=== PATIENT | female | born 1955 | race Caucasian/White ===

== ENCOUNTER 2016-12-03 23:48 | Inpatient (IN) | payer OTHER ==
--- NOTE | ~2016-12-03 | US77 ---
[facility] A Service of [facility] RADIOLOGY TEXT RESULTS PATIENT: BRAD WATSON LOCATION: [facility] 306- : 54 UNIT #: [id number] AGE: [address]: Ángela Landers MD SEX: F ORDER DR: [id number] [place] [id number] [facility]. [place], [place] [address] [id number] I MR#: [id number] #: [id number] NAME: BRAD WATSON : 1955 SEX: F STUDY DATE/TIME: 12/05/2016 14:00 [facility] ROOM: [facility] STUDY DESCRIPTION: US Kidney Bilateral Complete Attending Physician: Ángela Landers M.D. Ordering Physician: Ángela Landers M.D. Primary Care Physician: Rosa Monet A.P.R.N. MEDICAL IMAGING REPORT This report is preliminary unless electronic signature is present EXAM Renal ultrasound INDICATION Renal insufficiency. BUN 26, creatinine 1.3, GFR 43. PROCEDURE Perez-scale and Doppler imaging kidneys and bladder. COMPARISON CT 12/04/2016 FINDINGS The right kidney measures 10.5 cm. No hydronephrosis. Unremarkable bladder. Left kidney measures 8.7 cm. No hydronephrosis. There is a 10.0 mm cyst in the left kidney and a 1.2 cm cyst exophytic from the left kidney. IMPRESSION Two small left renal cysts. Otherwise negative renal ultrasound. No hydronephrosis. Dictated by... Tano Noriega M.D. THIS IS AN ELECTRONICALLY VERIFIED REPORT Tano Noriega M.D. at 12/06/2016 1:56 PM SHARIF/silverio TD: 12/05/2016 15:40 JOB #: [id number] MEDICAL IMAGING REPORT [facility] A Service of [facility] RADIOLOGY TEXT RESULTS PATIENT: BRAD WATSON LOCATION: [facility] 306- : 54 UNIT #: [id number] AGE: [address]: Ángela Landers MD SEX: F ORDER DR: Page 1 of 1 COPY
--- NOTE | ~2016-12-03 | DS ---
Unit #: [id number] #: [id number] Patient: BRAD WATSON [id number] [address] [address] [id number] I MR#: [id number] NAME: BRAD WATSON. ROOM: 306 Age: 61 Sex: F Admission Date: 12/04/2016 : 1955 Discharge Date: 12/07/2016 Attending Physician: Ángela Landers M.D. Primary Care Physician: Rosa Monet A.P.R.N. DISCHARGE SUMMARY DISCHARGE DIAGNOSES 1. Large prepyloric gastric ulcer. 2. Abdominal pain secondary to gastric ulcer. 3. Acute gastritis. 4. Urinary tract infection. Cultures negative. 5. Hypoglycemia secondary to poor p.o. intake. 6. Nausea secondary to gastric ulcer. 7. History of chronic obstructive pulmonary disease, stable. 8. Coronary artery disease with non-ST myocardial infarction elevation, with normal ejection fraction. 9. Hypertension, controlled. 10. Hyperlipidemia. 11. Chronic respiratory failure, hypoxic on 2 liters oxygen. 12. Obstructive sleep apnea, noncompliant with CPAP. 13. History of PE. 14. History of diverticular disease. 15. Gastroesophageal reflux disease. 16. Hypothyroidism. 17. Depression. 18. History of ventral hernia. 19. Sigmoid diverticulosis. 20. Cirrhotic morphology of the liver on CAT scan of the abdomen, present on admission. Likely alcohol related. 21. Hyperkalemia on admission. 22. Acute kidney injury, present on admission. 23. Mild protein malnutrition. 24. Sepsis present on admission from urinary tract infection. 25. Hypovolemic shock present on admission. 26. Lumbar compression fracture, L1 and L4 and T12, chronic. Present on admission. CON[facility]ULT[facility]. PROCEDURES PERFORMED The patient had an EGD and colonoscopy which showed 2 cm prepyloric ulcer, gastritis. DIAGNOSTIC DATA LABORATORY: Glucose 74, stool cultures negative, sodium 136, potassium 4.3, creatinine 1.1, albumin 2.8, white blood cell count 8.3, hemoglobin 11.2, platelets 222. Blood cultures negative. Urine cultures negative. Lactic acid 2.5. Unit #: [id number] #: [id number] Patient: BRAD WATSON IMAGING: Ultrasound of the kidneys negative for any hydronephrosis. CAT scan of the abdomen and pelvis shows no acute findings. Ventral hernia present. Sigmoid diverticulosis present. Cirrhotic morphology of the liver present. No hydronephrosis. ALLERGIES Barbiturates, phenobarbital. DISCHARGE MEDICATIONS 1. Albuterol 2 puffs inhalation q.4 h. p.r.n. shortness of breath. 2. Zoloft 150 mg at bedtime. 3. Zofran 4 mg q.6 h. p.r.n. nausea. 4. Zyrtec 10 mg daily. 5. Pravastatin 20 mg daily. 6. Carafate 1 g q.i.d. 7. Aspirin 81 mg daily. 8. Protonix 40 mg p.o. b.i.d. 9. Synthroid 112 mcg p.o. daily. HOSPITAL COURSE This is a 61-year-old admitted because of abdominal pain and nausea. Abdomen pain and nausea: Secondary to prepyloric ulcer. The patient had an EGD and colonoscopy which showed ulcer. The patient received IV Protonix and Carafate. Currently the patient is tolerating a diet okay. Continue with Protonix and Carafate. I gave prescriptions. Hypoglycemia: Secondary to poor p.o. intake. Currently she (1) . I encouraged p.o. diet at home. Sepsis: Secondary to urinary tract infection. Present on admission. Currently resolved. The patient received antibiotics. She does not need antibiotics to take home. She completed her course. Hypovolemic shock: The patient received IV fluids. Currently resolved. Urinary tract infection: Cultures negative. The patient received Rocephin. She completed the antibiotics. Chronic L1, L4 and T12 fractures: I discussed with the patient. Apparently she knows about them. Follow up with primary care physician for followup. Currently she denies having any back pain. The patient will be discharged home to follow up with primary care physician in one week time. Discharge time taken was 31 minutes. Dictated by... Lashanda Khan TD: 12/07/2016 10:20 JOB #: [id number] Unit #: [id number] #: [id number] Patient: BRAD WATSON CC: Rosa Monet A.P.R.N. DISCHARGE SUMMARY Page 1 of 1 X Ángela Landers MD DISCHARGE SUMMARY
--- NOTE | ~2016-12-03 | CR72 ---
[facility] A Service of [facility] RADIOLOGY TEXT RESULTS PATIENT: BRAD WATSON LOCATION: [facility] 306- : 54 UNIT #: [id number] AGE: [address]: Joanne Ramon MD SEX: F ORDER DR: [id number] [facility] [address] [place], [place] [address] [id number] I MR#: [id number] Acc #: [id number] NAME: BRAD WATSON : 1955 SEX: F STUDY DATE/TIME: 12/04/2016 00:45 UNIT: [address] ROOM: [facility] STUDY DESCRIPTION: CR Chest Single View Portable Attending Physician: Joanne Ramon M.D. Ordering Physician: Ed Anderson Willoughby M.D. Primary Care Physician: Rosa Monet A.P.R.N. MEDICAL IMAGING REPORT This report is preliminary unless electronic signature is present EXAM Portable chest 12/04/2016 at 0045 INDICATION Shortness of air with nausea and vomiting for 1 day. History of COPD. FINDINGS AP portable chest is compared with 01/01/2016. Cardiac and mediastinal contours are normal. The lungs are emphysematous but clear. No pneumothorax is seen. There is some atherosclerotic disease in the aorta. IMPRESSION Emphysema. No active disease. Dictated by... Sae Jessica Jr., M.D. THIS IS AN ELECTRONICALLY VERIFIED REPORT Sae Jessica Jr., M.D. at 12/04/2016 5:18 PM GORGE/alonso TD: 12/04/2016 12:33 JOB #: [id number] MEDICAL IMAGING REPORT Page 1 of 1 COPY
--- NOTE | ~2016-12-03 | CO ---
Unit #: [id number] #: [id number] Patient: BRAD WATSON [id number] [address] [place], [place] [address] [id number] I MR#: [id number] NAME: BRAD WATSON. ROOM: 38678 Age: 61 Sex: F Admission Date: 12/04/2016 : 1955 Attending Physician: Joanne Ramon M.D. Primary Care Physician: Rosa Monet A.P.R.N. Consultation Date: 12/04/2016 CONSULTATION REPORT BRIEF HISTORY The patient is a 61-year-old lady with multiple medical problems, who presents with nausea, vomiting, diarrhea, and chronic left-sided abdominal pain. She states that her pain has been there for years, but has had increasing of vomiting and abdominal discomfort. She has had no fevers or chills that she recalls. No blood per rectum. No hematemesis. PAST MEDICAL HISTORY Hypertension, respiratory dysfunction, psych history, asthma, COPD, anxiety, depression, and chronic back pain. PAST SURGICAL HISTORY She has had appendectomy and cholecystectomy. HOME MEDICATIONS Sertraline, levothyroxine, Lasix, lisinopril, diclofenac, metoprolol, pravastatin. SOCIAL HISTORY Continues to smoke. No alcohol. FAMILY HISTORY Negative for GI malignancy. REVIEW OF SYSTEMS No cardiopulmonary complaints at this time. Else, 10 systems reviewed and negative. PHYSICAL EXAMINATION GENERAL: She is awake, alert, appears to be respiratory congested. VITAL SIGNS: Currently, afebrile. HEENT: Unremarkable. NECK: Supple. No JVD. Trachea midline. LUNGS: Clear to auscultation. Bilateral breath sounds symmetric. CARDIOVASCULAR: Regular rate and rhythm. ABDOMEN: Soft. It is diffusely tender. No rebound. No masses palpable. No point tenderness. No hernias palpable. She does have a mass fullness at the medial portion of her upper quadrant incision. I am not sure whether this represents a hernia or scar tissue. EXTREMITIES: No clubbing, cyanosis, or edema. DIAGNOSTIC STUDIES LABORATORY RESULTS: Show a white count 15, hemoglobin 14.8. Creatinine Unit #: [id number] #: [id number] Patient: BRAD WATSON is 2.6, potassium 5.2. Liver function studies are normal. Amylase is normal. IMAGING STUDIES: CT scan shows no acute disease. ASSESSMENT 1. Abdominal pain, acute on chronic. 2. Nausea, vomiting, diarrhea. PLAN Recommend resuscitate. We will eventually require upper and lower endoscopy. Dictated by... Lashanda Larios/darlene TD: 12/04/2016 07:25 JOB #: [id number] CONSULTATION REPORT Page 1 of 1 X Duane Reyes MD X CONSULTATION REPORT
--- NOTE | ~2016-12-03 | OR ---
Unit #: [id number] #: [id number] Patient: BRAD WATSON [id number] [address] [address] [id number] I MR#: [id number] NAME: BRAD WATSON. ROOM: [facility] Date of Procedure: 12/06/2016 Admission Date: 12/04/2016 Surgeon: Duane Reyes M.D. : 1955 Attending Physician: Ángela Lanedrs M.D. Primary Care Physician: Rosa Monet A.P.R.N. OPERATIVE REPORT PREOPERATIVE DIAGNOSIS Abdominal pain. POSTOPERATIVE DIAGNOSES 1. 2 cm prepyloric ulcer nonbleeding. 2. Gastritis. 3. Severe sigmoid diverticular disease. PROCEDURES PERFORMED 1. Esophagogastroduodenoscopy with biopsy for Helicobacter pylori. 2. Colonoscopy to cecum. ANESTHESIA IV sedation. COMPLICATIONS None. INDICATIONS FOR PROCEDURE The patient is a 59-year-old with abdominal pain. DESCRIPTION OF PROCEDURE The patient was taken to the operating theater and placed in a left lateral decubitus position. IV sedation was initiated. EGD scope was passed under direct vision into the esophagus. Esophagus was grossly normal. Stomach showed diffuse gastritis mainly at the antrum. There was a large ulcer crater in the prepyloric region measuring approximately 2 cm in diameter. This was nonhemorrhagic mucous base with raised edges. Biopsies were taken for H pylori. The duodenum was normal. The patient was repositioned. Digital rectal exam was normal. Colonoscope was then passed under vision and taken to the cecum. The patient had a very poor prep. I was able to exclude any obvious neoplastic lesions. There was no inflammation. There was severe sigmoid diverticular disease. She tolerated the procedure well and sent to recovery room in good condition. PLAN Recommend Carafate and proton pump inhibitors. We will follow up on biopsy. We would consider repeat endoscopy in 3 months. Unit #: [id number] #: [id number] Patient: BRAD WATSON Dictated by... Lashanda LariosO/darlene TD: 12/06/2016 22:38 JOB #: [id number] OPERATIVE REPORT Page 1 of 1 X Duane Reyes MD PROCEDURE OPERATIVE NOTE
--- NOTE | ~2016-12-03 | HP ---
Unit #: [id number] #: [id number] Patient: BRAD WATSON [id number] [address] [place], [place] [address] [id number] I MR#: [id number] NAME: BRAD WATSON. ROOM: 61617 Age: 61 Sex: F Admission Date: 12/04/2016 : 1955 Attending Physician: Joanne Ramon M.D. Primary Care Physician: Rosa Monet A.P.R.N. HISTORY AND PHYSICAL CHIEF COMPLAINT Nausea, vomiting, diarrhea with abdominal pain and acute kidney injury. HISTORY OF PRESENT ILLNESS This pleasant 61-year-old female with CAD and normal LV function, hypertension, COPD, is admitted for abdominal pain. The patient was in her usual state of health until two weeks prior to admission when she began to experience increasing epigastric pain radiating to her left abdomen associated with nonbloody nausea, vomiting, diarrhea. The patient notes decreased urinary output, lightheadedness and fatigue. She presented to this emergency department last evening with stable vital signs. She does have epigastric tenderness and tenderness in the left abdomen. Labs are notable for acute kidney injury, hyperkalemia, and elevated WBC count. CT scan is read as no acute disease. The patient denies ill contacts or eating anything out of the ordinary. The patient does have a ventral hernia both on exam as well as on her CT scan. PAST MEDICAL HISTORY 1. COPD. 2. CAD with non-ST elevation SD 07/2015. Cardiac catheterization: 90% stenosis of the mid segment of the posterior marginal branch of the circumflex, 80% stenosis of the mid LAD. Normal LV function. Ejection fraction was 60% 07/2015. 3. Hypertension. 4. Hyperlipidemia. 5. COPD on two liters of oxygen. 6. Obstructive sleep apnea, noncompliant with CPAP. 7. Pulmonary embolus. 8. Diverticular disease. 9. GERD. 10. Hypothyroidism. 11. Depression. 12. Cholecystectomy. 13. BTL. 14. Appendectomy. 15. Left hand surgery. SOCIAL HISTORY The patient lives with her son. She is smoking up two packs per day of tobacco and now smokes an occasional cigarette. She no longer uses drugs or alcohol. FAMILY HISTORY Unit #: [id number] #: [id number] Patient: BRAD WATSON Malignancy of the kidneys. ALLERGIES Barbiturates. HOME MEDICATIONS 1. Pravachol 20 mg daily. 2. Zoloft 150 mg q.h.s. 3. Prinivil 40 mg daily. 4. Lopressor 50 mg b.i.d. 5. Diclofenac 75 mg b.i.d. 6. Zyrtec 10 mg daily. 7. Synthroid 0.112 mg daily. 8. Lasix 20 mg b.i.d. 9. Potassium 20 mEq daily. 10. Aspirin 81 mg daily. 11. Ventolin inhaler as needed. REVIEW OF SYSTEMS Abdominal pain, nausea, vomiting, diarrhea, chills, fatigue, lightheadedness, above-mentioned surgeries, CAD, COPD, hypertension, hyperlipidemia, obstructive sleep apnea, remote PE, diverticular disease, GERD, depression, hypertension, hypothyroidism. All other systems were reviewed and otherwise negative. PHYSICAL EXAMINATION GENERAL APPEARANCE: A pleasant, 61-year-old mildly obese female currently in no acute distress. VITAL SIGNS: Temperature 98.6. Pulse 87. Respirations 15. Blood pressure 148/52. O2 saturation 95% on room air. HEENT: Eyes: PERRLA. Extraocular muscles are intact. Pharynx is benign. NECK: Supple without adenopathy or thyromegaly. CHEST: Currently is clear. Apparently, earlier, she did have wheezing and was treated with Solu-Medrol and DuoNeb. CARDIAC: S1, S2 without murmur. ABDOMEN: Bowel sounds are present. Well-healed scar is noted. The patient is most tender in the epigastric region and the left upper quadrant but no rebound or guarding. She is also tender in the suprapubic area but has to urinate. No CVA tenderness. EXTREMITIES: Without cyanosis, clubbing or edema. Pedal pulses are present. No ulcers on the feet. NEUROLOGIC: The patient is awake, alert, oriented. Cranial nerves are intact. Equal strength throughout. DIAGNOSTIC STUDIES LABORATORY: Hematocrit 46, WBC count 15.3, normal platelet count, 2 bands noted. SMA-12: BUN 58, creatinine 2.9 up from a BUN of 14, creatinine 0.8 last year, sodium 129, potassium 5.6, chloride 96, alkaline phosphatase 127. Cardiac markers are negative. IMAGING: CT scan: No acute disease. Ventral hernia noted. Sigmoid diverticular disease. Cirrhotic appearing liver. New but chronic appearing compression fracture since 2014, L1, L4 and T12. CARDIOVASCULAR: EKG: Sinus rhythm, rate 82 with Qs noted in III and aVF. Poor R-wave progression in V1 through V3. ASSESSMENT Unit #: [id number] #: [id number] Patient: BRAD WATSON 1. Complaints of epigastric and left upper quadrant pain with nonbloody nausea, vomiting and diarrhea. Possibly, this represents gastroenteritis. We will check amylase, lipase. Place the patient on proton pump inhibitor and continue to work up further. The patient does have a known ventral hernia as well. 2. Acute kidney injury secondary to dehydration and medications, although has hyperkalemia. 3. Hypovolemic, hyponatremia. 4. COPD with mild exacerbation on oxygen. 5. Hypertension with somewhat low blood pressure currently. 6. CAD with normal LV function. 7. Obstructive sleep apnea. 8. Hypothyroidism. PLAN 1. Check amylase, lipase, urinalysis. 2. Proton pump inhibitor, Zofran, check stool cultures. 3. IV fluids. Give Kayexalate. 4. SCDs for DVT prophylaxis. 5. Discontinue Lasix, lisinopril, potassium, nonsteroidal anti-inflammatory drugs. 6. Recheck labs in a few hours. 7. Consultants depending on above. Dictated by Joanne Ramon M.D. AML/bd TD: 12/04/2016 06:32 JOB #: [id number] HISTORY AND PHYSICAL Page 1 of 1 X Joanne Ramon MD X HISTORY AND PHYSICAL
--- NOTE | ~2016-12-03 | EKG ---
PATIENT: RBAD WATSON UNIT #: [id number] Ventricular Rate: 82 BPM Atrial Rate: 82 BPM P-R Interval: 166 ms QRS Duration: 64 ms Q-T Interval: 350 ms QTC Calculation(Bezet): 408 ms P [place]: 83 degrees Calculated R [place]: -30 degrees Calculated T [place]: 86 degrees Diagnosis Line: Normal sinus rhythm Diagnosis Line: Left axis deviation Diagnosis Line: Septal infarct , age undetermined Diagnosis Line: Abnormal ECG Diagnosis Line: No previous ECGs available Diagnosis Line: Confirmed by LANDON MARINELLI MD ([id number]) on Diagnosis Line: 12/04/2016 8:37:51 AM INTERPRETING MD: YVES CORREA
--- NOTE | ~2016-12-03 | CT4 ---
[facility] A Service of [facility] RADIOLOGY TEXT RESULTS PATIENT: BRAD WATSON LOCATION: C3A 306-01 : [birth year] UNIT #: [id number] AGE: [address]: Joanne Ramon MD SEX: F ORDER DR: [id number] [facility] [address] [place], [place] [address] [id number] I MR#: [id number] #: [id number] NAME: BRAD WATSON. : 1955 SEX: F STUDY DATE/TIME: 12/04/2016 UNIT: C3A PCU ROOM: 306 STUDY DESCRIPTION: CT Abd and Pelv Wo Cont Attending Physician: Joanne Ramon M.D. Ordering Physician: Gaurang Martinez M.D. Primary Care Physician: Rosa Monet A.P.R.N. MEDICAL IMAGING REPORT This report is preliminary unless electronic signature is present EXAM Abdomen and pelvis CT 12/04 at 02:22 INDICATIONS Nausea, vomiting and diarrhea with left side abdominal pain for 1 week. TECHNIQUE Axial images were obtained through the abdomen and pelvis without contrast. Multiplanar reformats were obtained. Comparison made with 04/13/2014. The CT exam was performed with one or more of the following radiation dose reduction techniques: automatic exposure control, adjustment of mA and/or kV according to patient size, and iterative reconstruction. FINDINGS Abdomen: There is some chronic scarring in the right lower lobe. Lung bases are otherwise clear. Gallbladder is surgically absent. Liver has a cirrhotic morphology. No renal or ureteral stones are seen and there is no hydronephrosis. Small left renal cysts are likely present. Unenhanced solid organs are otherwise normal. No free fluid is seen. The unopacified GI tract is normal. There is atherosclerotic disease. There is a midline ventral wall hernia anterior to the liver that contains some abdominal fat. The hernia sac itself may be slightly larger but the hernia defect is stable. Pelvis: Urinary bladder is within normal limits. Solid pelvic organs are normal. There is sigmoid diverticulosis without evidence of diverticulitis. GI tract is otherwise normal except for changes of appendectomy. There has been interval development of compression fractures of L4, L1 and T12. There is near vertebra plana of the lumbar STS. [facility] A Service of [facility] RADIOLOGY TEXT RESULTS PATIENT: BRAD WATSON LOCATION: C3A 306-01 : 53 UNIT #: [id number] AGE: [address]: Joanne Ramon MD SEX: F ORDER DR: compression fractures. These have a chronic appearance. IMPRESSION 1. No clearly acute findings in the abdomen or pelvis. 2. Fat-containing ventral wall hernia anterior to the liver. The hernia sac is slightly larger but a hernia defect is stable. 3. Sigmoid diverticulosis without diverticulitis. Status post appendectomy. No bowel obstruction. 4. Cirrhotic liver. 5. No renal or ureteral stones. No hydronephrosis. New since 04/13/2014 are lumbar compression fractures at L1 and L4. There is also a mild T12 compression fracture. These have a chronic appearance however. Dictated by... Sae Jessica Jr., M.D. THIS IS AN ELECTRONICALLY VERIFIED REPORT Sae Jessica Jr., M.D. at 12/04/2016 5:19 PM GORGE/qiana TD: 12/04/2016 10:36 JOB #: [id number] MEDICAL IMAGING REPORT Page 1 of 1 COPY
[~2016-12-03 23:48] MED LIST: ACETAMINOPHEN PO; ADVAIR 1001 DISK W/D PO; ADVAIR DISKU1 250/50 INH; ALB/IPRATROPIUM/1 E1 INH; ALBUTEROL0.83 MG/ML IH; ALBUTEROL17 GM INH; ALLERGY RELIEF10 M1 PO; AMLODIPINE BESYL5 MG PO; ASPIRIN81 MG PO; CETIRIZINE HCL10 MG PO; CIPRO PO; CLARITIN10 MG PO; CLOPIDOGREL75 MG PO; DICLOFENAC PO; DOXYCYCLINE150 MG PO; FAMOTIDINE PO; FAMOTIDINE20 M1 PO; FAMOTIDINE20 MG PO; FLAGYL PO; FLEXERIL PO; FLEXERIL10 MG PO; FLONASE16 GM; FLOVENT HFA12 GM INH; FOLIC ACID1 MG PO; GUAIFENESIN LA600 M1 PO; GUAIFENESIN-CO480 ML PO; HYDROCHLOROTHIA25 MG PO; IMDUR-ER60 M2 PO; K-LOR HOSPITAL20 ME1 PO; LASIX20 MG PO; LEVAQUIN PO; LEVAQUIN750 MG PO; LEVOTHYROXINE100 MCG PO; LISINOPRIL PO; LISINOPRIL20 MG PO; LOPRESSOR PO; MEDROL PO; METOPROLOL TART25 MG PO; MOBIC PO; NITROGLYGERIN0.4 MG SL; PATIENT'S PHARMACY; PAXIL PO; PERCOCET5/325 PO; PHENERGAN PO; PRAVACHOL PO; PRAVACHOL20 MG PO; PRAVASTATIN SOD20 MG PO; PREDNISONE PO; PREDNISONE1 MG PO; PREDNISONE10 MG/DOSE PO; PROZAC PO; QVAR7.3 G1 INH; SERTRALINE HCL100 M1 PO; SYNTHROID PO; TIROSINT88 MCG PO; TYLENOL #3 PO; ULTRAM PO; VENTOLIN5 MG/ML IH; VIBRAMYCIN100 M1 PO; VICODIN PO; VIT B12 IM; VOLTAREN75 MG PO; VOTRIENT200 MG PO; ZANTAC PO; ZITHROMAX PO; ZOLOFT50 MG PO
[2016-12-04 01:10] LABS: BASOPHIL# 0.1 X10e3 (0-0.3); BASOPHIL% 0.8 % (0-2.5); EOSINOPHIL# 0.2 X10e3 (0-0.7); EOSINOPHIL% 1.4 % (0.0-7.0); HEMOGLOBIN 14.8 gm/dL (12.0-16.0); LYMPHOCYTE# 3.2 X10e3 (1.0-3.5); LYMPHOCYTE% 21.1 % (17.0-45.0); MEAN CELL VOLUME 92.9 FL (83-96); MEAN CORPUSCULAR HEMOGLOBIN 29.9 PG (28-34); MEAN CORPUSCULAR HGB CONC 32.2 g/dL (30-36); MEAN PLATELET VOLUME 7.6 FL (6.5-11.5); MONOCYTE# 1.4 X10e3 (0-1.0); MONOCYTE% 8.8 % (3.0-12.0); NEUTROPHIL# 10.4 X10e3 (1.5-7.1); NEUTROPHIL% 67.9 % (40-75); PLATELET COUNT 360 X10e3 (140-420); RED BLOOD COUNT 4.95 X10e (3.90-5.30); WHITE BLOOD COUNT 15.3 X10e3 (4.0-10.5)
[2016-12-04 01:13] LABS: DIFF IND YES
[2016-12-04 01:25] LABS: PLATELET ESTIMATE NORMAL (NORMAL)
[2016-12-04 01:27] LABS: POC - CKMB 2.1 ng/mL (0.0-7.9); POC - TROPONIN <0.05 ng/mL (<=0.05)
[2016-12-04 01:33] LABS: ALBUMIN SERUM 3.9 g/dL (3.5-5.0); BILIRUBIN, DIRECT 0.2 mg/dL (0.0-0.2); BILIRUBIN,INDIRECT 0.3 mg/dL (0.0-0.9); BILIRUBIN,TOTAL 0.5 mg/dL (0.2-2.0); CALCIUM SERUM 10.1 mg/dL (8.4-10.2); CREATININE SERUM 2.9 mg/dL (0.6-1.4); GLOM FILT RATE Estimated 16.7 mL/min (>60); PROTEIN TOTAL SERUM 8.2 g/dL (6.0-8.3)
[2016-12-04 01:35] LABS: POTASSIUM 5.6 mmol/L (3.5-5.1)
[2016-12-04] MEDS ORDERED: PRAVASTATIN SOD20 MG PO (02:49)
[2016-12-04] MEDS ORDERED: PRINIVIL40 MG PO (02:50)
[2016-12-04] MEDS ORDERED: ZOLOFT100 MG PO (02:50)
[2016-12-04] MEDS ORDERED: VOLTAREN75 MG PO (02:51)
[2016-12-04] MEDS ORDERED: METOPROLOL SUCC50 MG PO (02:51)
[2016-12-04] MEDS ORDERED: ZYRTEC10 M1 PO (02:52)
[2016-12-04] MEDS ORDERED: SYNTHROID112 MCG PO (02:53)
[2016-12-04] MEDS ORDERED: LASIX20 MG PO (02:53)
[2016-12-04] MEDS ORDERED: ASPIRIN81 M2 PO (02:54)
[2016-12-04] MEDS ORDERED: K-DUR20 ME1 PO (02:54)
[2016-12-04] MEDS ORDERED: ALBUTEROL17 GM INH (02:55)
[2016-12-04 04:28] LABS: AMYLASE 22 U/L (0-46); LIPASE 22 U/L (22-51)
[2016-12-04 05:11] LABS: URINE SOURCE CLEAN CATCH
[2016-12-04 05:23] LABS: URINE APPEARANCE CLEAR; URINE BILIRUBIN NEG (NEG); URINE BLOOD NEG (NEG); URINE COLOR YELLOW; URINE GLUCOSE NEG (NEG); URINE KETONE NEG (NEG); URINE LEUKOCYTE ESTERASE TRACE (NEG); URINE NITRATE NEG (NEG); URINE PROTEIN TRACE (NEG); URINE SPECIFIC GRAVITY 1.009 (1.003-1.035); URINE UROBILINOGEN 0.2 MG/DL (NEG)
[2016-12-04 05:27] LABS: CULTURE INDICATED? YES; URBCS1 AUWI 0-2 /[HPF] (0-2); URINE BACTERIA AUWI 1+ (NEGATIVE); URINE SQUAMOUS EPITHELIAL CELL FEW /[HPF]
[2016-12-04 06:14] LABS: BUN/CREATININE RATIO 20.38; CALCIUM SERUM 9.4 mg/dL (8.4-10.2); CREATININE SERUM 2.6 mg/dL (0.6-1.4); POTASSIUM 5.2 mmol/L (3.5-5.1)
[2016-12-04 07:35] LABS: BASOPHIL% 0.2 % (0-2.5); HEMATOCRIT 38.2 % (35.0-45.0); LYMPHOCYTE# 0.8 X10e3 (1.0-3.5); LYMPHOCYTE% 6.7 % (17.0-45.0); MEAN CELL VOLUME 93.5 FL (83-96); MEAN CORPUSCULAR HEMOGLOBIN 29.5 PG (28-34); MEAN CORPUSCULAR HGB CONC 31.6 g/dL (30-36); MEAN PLATELET VOLUME 7.6 FL (6.5-11.5); MONOCYTE# 0.1 X10e3 (0-1.0); MONOCYTE% 0.6 % (3.0-12.0); NEUTROPHIL# 10.7 X10e3 (1.5-7.1); NEUTROPHIL% 92.5 % (40-75); PLATELET COUNT 254 X10e3 (140-420); RED BLOOD COUNT 4.09 X10e (3.90-5.30); WHITE BLOOD COUNT 11.6 X10e3 (4.0-10.5)
[2016-12-04 07:39] LABS: HEMOGLOBIN 12.1 gm/dL (12.0-16.0)
[2016-12-04 07:40] LABS: DIFF IND NO
[2016-12-05 06:10] LABS: HEMATOCRIT 38.8 % (35.0-45.0); HEMOGLOBIN 12.4 gm/dL (12.0-16.0); MEAN CELL VOLUME 93.6 FL (83-96); MEAN CORPUSCULAR HEMOGLOBIN 29.8 PG (28-34); MEAN CORPUSCULAR HGB CONC 31.9 g/dL (30-36); MEAN PLATELET VOLUME 7.1 FL (6.5-11.5); RED BLOOD COUNT 4.15 X10e (3.90-5.30); RED CELL DISTRIBUTION WIDTH 16.1 % (11.0-15.5)
[2016-12-05 07:22] LABS: ALBUMIN SERUM 3.1 g/dL (3.5-5.0); BILIRUBIN,TOTAL 0.4 mg/dL (0.2-2.0); CALCIUM SERUM 8.4 mg/dL (8.4-10.2); CREATININE SERUM 1.3 mg/dL (0.6-1.4); GLOM FILT RATE Estimated 43.9 mL/min (>60); POTASSIUM 4.7 mmol/L (3.5-5.1); PROTEIN TOTAL SERUM 6.3 g/dL (6.0-8.3)
[2016-12-06 06:16] LABS: HEMATOCRIT 36.7 % (35.0-45.0); HEMOGLOBIN 11.9 gm/dL (12.0-16.0); MEAN CELL VOLUME 93.4 FL (83-96); MEAN CORPUSCULAR HEMOGLOBIN 30.2 PG (28-34); MEAN CORPUSCULAR HGB CONC 32.4 g/dL (30-36); RED BLOOD COUNT 3.93 X10e (3.90-5.30); WHITE BLOOD COUNT 10.7 X10e3 (4.0-10.5)
[2016-12-06 07:32] LABS: ALBUMIN SERUM 3.1 g/dL (3.5-5.0); BILIRUBIN,TOTAL 0.4 mg/dL (0.2-2.0); BUN/CREATININE RATIO 10.83; CALCIUM SERUM 8.1 mg/dL (8.4-10.2); CREATININE SERUM 1.2 mg/dL (0.6-1.4); GLOM FILT RATE Estimated 48.4 mL/min (>60); PROTEIN TOTAL SERUM 6.1 g/dL (6.0-8.3)
[2016-12-07 04:56] LABS: HEMATOCRIT 34.8 % (35.0-45.0); HEMOGLOBIN 11.2 gm/dL (12.0-16.0); MEAN CELL VOLUME 93.3 FL (83-96); MEAN CORPUSCULAR HEMOGLOBIN 30.1 PG (28-34); MEAN CORPUSCULAR HGB CONC 32.3 g/dL (30-36); MEAN PLATELET VOLUME 6.9 FL (6.5-11.5); RED BLOOD COUNT 3.73 X10e (3.90-5.30); RED CELL DISTRIBUTION WIDTH 16.1 % (11.0-15.5); WHITE BLOOD COUNT 8.3 X10e3 (4.0-10.5)
[2016-12-07 06:47] LABS: ALBUMIN SERUM 2.8 g/dL (3.5-5.0); BILIRUBIN,TOTAL 0.3 mg/dL (0.2-2.0); BUN/CREATININE RATIO 7.27; CALCIUM SERUM 8.2 mg/dL (8.4-10.2); CREATININE SERUM 1.1 mg/dL (0.6-1.4); GLOM FILT RATE Estimated 53.8 mL/min (>60); POTASSIUM 4.3 mmol/L (3.5-5.1); PROTEIN TOTAL SERUM 5.3 g/dL (6.0-8.3)
[2016-12-07] MEDS ORDERED: ONDANSETRON HCL4 M1 PO (16:05)
[2016-12-07] MEDS ORDERED: CARAFATE1 GM PO (16:07)
[2016-12-07] MEDS ORDERED: PROTONIX PO (16:08)
== END 2016-12-07 17:33 | disposition home or self-care (01) | DRG 871 ==
LOC: CED 23:48 → C3A PCU 12-04 03:30 → CEDOF 12-04 03:30 → CED 12-04 03:44 → C3A PCU 12-04 10:28 → CEDOF 12-04 10:28 → C3A PCU 12-05 09:30
PROVIDERS: Emergency Medicine; Internal Medicine; Surgery
PROC: 0DB68ZX Excision of Stomach, Via Natural or Artificial Opening Endoscopic, Diagnostic (ICD-10-PCS; principal; 2016-12-06 11:28)
PROC: 0DJD8ZZ Inspection of Lower Intestinal Tract, Via Natural or Artificial Opening Endoscopic (ICD-10-PCS; 2016-12-06 11:28)
DX: A41.9 Sepsis, unspecified organism (principal); R57.1 Hypovolemic shock; N17.9 Acute kidney failure, unspecified; J96.11 Chronic respiratory failure with hypoxia; N39.0 Urinary tract infection, site not specified; E44.1 Mild protein-calorie malnutrition; Z99.81 Dependence on supplemental oxygen; I10 Essential (primary) hypertension; J44.9 Chronic obstructive pulmonary disease, unspecified; I25.10 Atherosclerotic heart disease of native coronary artery without angina pectoris; E78.5 Hyperlipidemia, unspecified; G47.33 Obstructive sleep apnea (adult) (pediatric); Z91.19 Patient's noncompliance with other medical treatment and regimen; K21.9 Gastro-esophageal reflux disease without esophagitis; E03.9 Hypothyroidism, unspecified; F32.9 Major depressive disorder, single episode, unspecified; Z90.49 Acquired absence of other specified parts of digestive tract; F17.210 Nicotine dependence, cigarettes, uncomplicated; Z79.82 Long term (current) use of aspirin; K25.9 Gastric ulcer, unspecified as acute or chronic, without hemorrhage or perforation; K57.30 Diverticulosis of large intestine without perforation or abscess without bleeding; E86.0 Dehydration; M48.56XD Collapsed vertebra, not elsewhere classified, lumbar region, subsequent encounter for fracture with routine healing; E16.2 Hypoglycemia, unspecified; E87.5 Hyperkalemia; K70.30 Alcoholic cirrhosis of liver without ascites; Z86.711 Personal history of pulmonary embolism; K29.00 Acute gastritis without bleeding; Z68.29 Body mass index [BMI] 29.0-29.9, adult
CPT/HCPCS: 36415; 71010; 74176; 76770; 80048; 80053; 80076; 81003; 82150; 82553; 82947; 83605; 83690; 83735; 84484; 85025; 85027; 87040; 87045; 87077; 87086; 87177; 87209; 87427; 87493; 87899; 93005; 94640; 94644; 94760; 96361; 96374; 96375; 99291; J0696; J2250; J2270; J2405; J2930